=== PATIENT | female | born 1970 | race Caucasian/White ===

== ENCOUNTER 2022-07-18 21:28 | Emergency (ER) | payer OTHER ==
[~2022-07-18] VITALS: Ht 162.6 cm; Wt 81.6 kg
[2022-07-19] MEDS ORDERED: NORFLEX100MG PO (03:57)
[2022-07-19] MEDS ORDERED: IBU400 MG PO (03:57)
[2022-07-19] MEDS ORDERED: COLCHICINE0.6 M1 PO (03:57)
== END 2022-07-19 04:05 | disposition home or self-care (01) ==
LOC: ER 21:28
DX: R07.89 Other chest pain (principal); I31.9 Disease of pericardium, unspecified; Z88.6 Allergy status to analgesic agent